=== PATIENT | male | born 1965 | race Hispanic/Latino ===

== ENCOUNTER 2021-01-21 23:06 | Emergency (ER) | payer OTHER ==
[2021-01-21] MEDS ORDERED: CEFTRIAXONE SODIUM 2 GM VIAL ONE (23:49)
[2021-01-21] MEDS ORDERED: AZITHROMYCIN 500MG+NS 250ML 250 ML IV ONE (23:49)
[2021-01-21] MEDS ORDERED: SODIUM CHLORIDE 0.9% 100 ML IV ONE (23:52)
[2021-01-21 23:55] LABS: BASOPHILS % (AUTO) 0.1 % (0.0-5.0); EOSINOPHILS % (AUTO) 0.1 % (0.0-8.0); HEMATOCRIT 38.4 % (42-54); LYMPHOCYTES % (AUTO) 12.6 % (21.0-51.0); MEAN CORPUSCULAR HEMOGLOBIN 33.3 pg (27.0-33.0); MEAN CORPUSCULAR HGB CONC 34.1 g/dL (32.0-36.0); MEAN CORPUSCULAR VOLUME 97.7 fL (79-99); MONOCYTES % (AUTO) 14.5 % (3.0-13.0); NEUTROPHILS % (AUTO) 72.3 % (40.0-77.0); PLATELET COUNT (AUTO) 189 K/uL (130-400); RED BLOOD CELL COUNT(AUTO) 3.93 MIL/uL (4.50-6.20); RED CELL DISTRIBUTION WIDTH 12.3 % (11.0-15.5); WHITE BLOOD COUNT (AUTO) 8.1 K/uL (4.8-10.8)
[2021-01-22] LABS: INR 1.1 (0.85-1.15); PROTHROMBIN TIME 11.9 SEC (9.6-11.6)
[2021-01-22 00:01] LABS: PARTIAL THROMBOPLASTIN TIME 33.2 SEC (26.3-35.5)
[2021-01-22 00:14] LABS: ALANINE AMINOTRANSFERASE 43 U/L (12-78); ALBUMIN 3.2 g/dL (3.5-5.0); ASPARTATE AMINOTRANSFERASE 23 U/L (10-37); BILIRUBIN,TOTAL 0.5 mg/dL (0.2-1.0); CARBON DIOXIDE 26 mmol/L (21-32); CHLORIDE 106 mmol/L (101-111); CREATINE KINASE, TOTAL 97 U/L (21-232); CREATININE 1.4 mg/dL (0.5-1.5); GLOMERULAR FILTR. RATE CALC 56 mL/min (>60); GLUCOSE,RANDOM 95 mg/dL (70-105); MYOGLOBIN 53 ng/mL (10-92); POTASSIUM 3.8 mmol/L (3.5-5.1); SODIUM SERUM 141 mmol/L (136-145); TROPONIN I < 0.04 ng/mL (0.00-0.06); UREA NITROGEN, BLOOD 17 mg/dL (7-18)
[2021-01-22 00:44] LABS: ABG BASE EXCESS -2.1 mmol/L (-2.0-3.0); ABG HCO3 22.3 mmol/L (21.0-28.0); ABG OXYGEN SATURATION 95.9 % (95.0-99.0); ABG PCO2 37 mmHg (35-48)
[2021-01-22 00:46] LABS: B-TYPE NATRIURETIC PEPTIDE 31 pg/mL (0-100)
[2021-01-22 00:53] LABS: APPEARANCE,URINE Clear (CLEAR); BILIRUBIN,URINE Negative (NEGATIVE); COLOR,URINE Yellow (YELLOW); GLUCOSE, URINE (UA) Negative (NEGATIVE); KETONES,URINE Negative (NEGATIVE); LEUKOCYTE ESTERASE ,URINE Negative (NEGATIVE); NITRATE,URINE Negative (NEGATIVE); OCCULT BLOOD,URINE Small (NEGATIVE); PH,URINE 6.5 (5.0-8.0); PROTEIN,URINE Negative (NEGATIVE); UROBILINOGEN,URINE 0.2 mg/dL (0.2-1.0)
[2021-01-22 01:00] LABS: ERYTHROCYTE SEDIMENTATION RATE 24 MM/HR (0-20)
[2021-01-22 01:04] LABS: BACTERIA,URINE None Seen /HPF (None Seen); RBC,URINE 0-1 /HPF (0-1); SQUAMOUS EPITHELIAL CELL,UR Rare /HPF (0-2); WBC,URINE None Seen /HPF (0-1)
[2021-01-22] MEDS ORDERED: MAG HYDROX/AL HYDROX/SIMETH ES 30 ML SUSP UDCUP ONE (02:14)
[2021-01-22] MEDS ORDERED: AMLODIPINE BESYLATE 5 MG TAB ONE (02:14)
[2021-01-22] MEDS ORDERED: LIDOCAINE HCL 2% VISCOUS 15 ML UDCUP ONE (02:14)
[2021-01-22] MEDS ORDERED: ACETAMINOPHEN EXTRA STRENGTH 500 MG TABLET ONE (02:14)
== END 2021-01-22 02:48 | disposition home or self-care (01) ==
LOC: EDH 23:06
DX: U07.1 COVID-19 (principal); J20.9 Acute bronchitis, unspecified; I10 Essential (primary) hypertension
CPT/HCPCS: 36415; 36600; 71045; 80053; 81001; 82550; 82803; 83605; 83874; 83880; 84145; 84484; 85025; 85378; 85610; 85651; 85730; 86140; 87040 ×2; 87088; 87426; 87804 ×2; 93005; 96365; 96366; 96368; 99285; J0456; J0696